=== PATIENT | female | born 1930 | race Caucasian/White ===

== ENCOUNTER → 2017-04-17 | Outpatient (CLI) | payer MEDICARE | LOC: ULTRA 16:42 | DX: M79.604 Pain in right leg (principal); M79.89 Other specified soft tissue disorders ==

== ENCOUNTER → 2017-10-15 | Outpatient (CLI) | payer MEDICARE, OTHER | LOC: RAD 02:07 | DX: Z12.31 Encounter for screening mammogram for malignant neoplasm of breast (principal) ==